=== PATIENT | female | born 2000 | race American Indian/Alaskan Native ===

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

== ENCOUNTER 2019-06-21 20:35 | Emergency (ER) | payer MEDICAID, OTHER ==
[2019-06-22 01:57] VITALS: BP 138/84
[2019-06-22] MEDS ORDERED: IBUPROFEN ORAL LIQD 100 MG/5 ML ORAL.LIQD PO ONE (03:06)
[2019-06-22] MEDS ORDERED: PENICILLIN G BENZATHINE 1.2 MILLION UNIT/2 ML INJ IM ONE (03:25)
[2019-06-22] MEDS ORDERED: LIDOCAINE VISCOUS 2% 15 ML ORAL LIQD PO ONE (03:25)
[2019-06-22] MEDS ORDERED: oxyCODONE /ACETAMINOPHEN 5-325MG TAB PO ONE (03:25)
[2019-06-22] MEDS ORDERED: dexAMETHasone 20 MG/5 ML VIAL IM ONE (03:25)
[2019-06-22] MEDS ORDERED: ONDANSETRON 4 MG ODT TAB PO ONE (03:26)
--- NOTE | 2019-06-22 04:57 | Emergency Department Report ---
ED General Adult HPI - General Chief complaint: Sore Throat Stated complaint: SORE THROAT Source: patient Mode of arrival: Ambulatory Limitations: No Limitations - History of Present Illness Initial comments: Patient is a 19-year-old -[place] female with no past medical history except recurrent streptococcal pharyngitis who presents to the ED with acute onset persistent severe sore throat with swollen tonsils with white thick exudates and dysphagia for the last 2 days. Patient denies fever, chills, nausea, vomiting, dizziness, headache, chest pain, shortness of breath, abdominal pain, palpitations, vision changes or syncope. Patient states that no one else at home has had similar symptoms. Patient states that her symptoms are similar to previous symptoms she had when she was diagnosed with streptococcal pharyngitis. MD Complaint: sore throat, dysphagia, nasal and sinus congestion -: Sudden, days(s) (2) Location: mouth Radiation: non-radiation Severity scale (0 -10): 5 Quality: aching, sharp Consistency: constant Improves with: none Worsens with: eating Associated Symptoms: denies other symptoms, cough, headaches, loss of appetite, nausea/vomiting. denies: confusion, chest pain, diaphoresis, fever/chills, malaise, rash, seizure, shortness of breath, syncope, weakness, other Treatments Prior to Arrival: NSAID - Related Data Previous Rx's Medication Instructions Recorded Last Taken Type Acetaminophen/Codeine [Tylenol 1 tab PO Q6H PRN #10 tab 06/22/19 Unknown Rx /Codeine # 3 tab] Azithromycin [Zithromax Z-MATTHEW] 250 mg PO DAILY #6 tablet 06/22/19 Unknown Rx Ibuprofen [Motrin] 800 mg PO Q8HR PRN #24 tablet 06/22/19 Unknown Rx Lidocaine Viscous 2% 10 ml PO Q6H PRN #120 ml 06/22/19 Unknown Rx Ondansetron [Zofran Odt] 4 mg PO Q6HR PRN #15 tab.rapdis 06/22/19 Unknown Rx Prednisone [predniSONE 10 mg 10 mg PO .TAPER #21 tab.ds.pk 06/22/19 Unknown Rx (6-Day Pack, 21 Tabs)] Allergies Allergy/AdvReac Type Severity Reaction Status Date / Time No Known Allergies Allergy Verified 06/21/19 20:49 ED Review of Systems ROS: Stated complaint: SORE THROAT Other details as noted in HPI Constitutional: denies: chills, fever Eyes: denies: eye pain, eye discharge, vision change ENT: throat pain, congestion. denies: ear pain Respiratory: cough. denies: shortness of breath, SOB with exertion, wheezing Cardiovascular: denies: chest pain, palpitations, syncope, paroxysmal nocturnal dyspnea Endocrine: no symptoms reported Gastrointestinal: denies: abdominal pain, nausea, diarrhea Genitourinary: denies: urgency, dysuria, discharge Musculoskeletal: denies: back pain, joint swelling, arthralgia Skin: denies: rash, lesions Neurological: denies: headache, weakness, paresthesias Psychiatric: denies: anxiety, depression Hematological/Lymphatic: denies: easy bleeding, easy bruising ED Past Medical Hx - Medications Home Medications: Home Medications Medication Instructions Recorded Confirmed Last Taken Type Acetaminophen/Codeine [Tylenol 1 tab PO Q6H PRN #10 tab 06/22/19 Unknown Rx /Codeine # 3 tab] Azithromycin [Zithromax Z-MATTHEW] 250 mg PO DAILY #6 tablet 06/22/19 Unknown Rx Ibuprofen [Motrin] 800 mg PO Q8HR PRN #24 tablet 06/22/19 Unknown Rx Lidocaine Viscous 2% 10 ml PO Q6H PRN #120 ml 06/22/19 Unknown Rx Ondansetron [Zofran Odt] 4 mg PO Q6HR PRN #15 tab.rapdis 06/22/19 Unknown Rx Prednisone [predniSONE 10 mg 10 mg PO .TAPER #21 tab.ds.pk 06/22/19 Unknown Rx (6-Day Pack, 21 Tabs)] ED Physical Exam - General Limitations: No Limitations General appearance: alert, in no apparent distress - Head Head exam: Present: atraumatic, normocephalic, normal inspection - Eye Eye exam: Present: normal appearance, PERRL, EOMI Pupils: Present: normal accommodation - ENT ENT exam: Present: mucous membranes moist, TM's normal bilaterally, normal external ear exam, other (Grossly congested nasal passages; swollen tonsils bilaterally with erythematous oropharynx and thick white exudates) - Neck Neck exam: Present: normal inspection, full ROM, lymphadenopathy (Palpable cervical anterior lymphadenopathy). Absent: tenderness - Respiratory Respiratory exam: Present: normal lung sounds bilaterally. Absent: respiratory distress, wheezes, rales, chest wall tenderness, accessory muscle use, decreased breath sounds - Cardiovascular Cardiovascular Exam: Present: normal rhythm, tachycardia, normal heart sounds. Absent: systolic murmur, diastolic murmur, rubs, gallop - GI/Abdominal GI/Abdominal exam: Present: soft, normal bowel sounds. Absent: tenderness, guarding, hyperactive bowel sounds, hypoactive bowel sounds, organomegaly - Extremities Exam Extremities exam: Present: normal inspection, full ROM, normal capillary refill - Back Exam Back exam: Present: normal inspection, full ROM. Absent: tenderness, CVA tenderness (R), CVA tenderness (L), muscle spasm, vertebral tenderness - Neurological Exam Neurological exam: Present: alert, oriented X3, CN II-XII intact, normal gait, reflexes normal - Psychiatric Psychiatric exam: Present: normal affect, normal mood - Skin Skin exam: Present: warm, dry, intact, normal color. Absent: rash ED Course Vital Signs 06/21/19 06/22/19 21:33 01:55 Temperature 99.6 F 98.6 F Pulse Rate 107 H 94 H Respiratory 18 18 Rate Blood Pressure 161/85 138/84 O2 Sat by Pulse 100 100 Oximetry ED Medical Decision Making - Medical Decision Making This is a 19-year-old female with recurrent streptococcal pharyngitis infections who presented to the ED with acute onset persistent severe sore throat with dysphagia and swollen tonsils with thick white exudates and drooling for 2 days. In the ED, patient is alert and oriented x3 and is not in any distress but appears to be in pain and is anxious and tachycardic but afebrile in triage. Patient was treated for pain in the ED and also given antiemetics. Rapid strep test was positive for group A strep. Patient was treated in the ED with Decadron as well as Bicillin LA 1,200,000 units intramuscular injection. On reevaluation, patient's pain is well controlled with medications. Patient was discharged home on medications and advised to follow-up with her primary care physician in 7 to 10 days for reevaluation or return to the ED immediately if symptoms get worse. - Differential Diagnosis Strep pharyngitis; Flu; URI; Bronchitis Critical care attestation.: If time is entered above; I have spent that time in minutes in the direct care of this critically ill patient, excluding procedure time. ED Disposition Clinical Impression: Acute streptococcal pharyngitis, Acute upper respiratory infection Disposition: DC-01 TO HOME OR SELFCARE Is pt being admited?: No Does the pt Need Aspirin: No Condition: Stable Instructions: Strep Throat (ED), Tonsillitis (ED), Upper Respiratory Infection (ED) Additional Instructions: Your test shows that you have streptococcal pharyngitis. Therefore take medications with food, drink plenty of fluids and follow-up with your primary care physician in 5 to 7 days for reevaluation. Return to the ED immediately if symptoms get worse. Prescriptions: Lidocaine Viscous 2% 10 ml PO Q6H PRN #120 ml PRN Reason: Pain , Severe (7-10) Ibuprofen [Motrin] 800 mg PO Q8HR PRN #24 tablet PRN Reason: Pain , Severe (7-10) Prednisone [predniSONE 10 mg (6-Day Pack, 21 Tabs)] 10 mg PO .TAPER #21 tab.ds.pk Acetaminophen/Codeine [Tylenol /Codeine # 3 tab] 1 tab PO Q6H PRN #10 tab PRN Reason: Pain , Severe (7-10) Azithromycin [Zithromax Z-MATTHEW] 250 mg PO DAILY #6 tablet Ondansetron [Zofran Odt] 4 mg PO Q6HR PRN #15 tab.rapdis PRN Reason: Nausea Referrals: RICHARDSON NGUYEN MD [Staff Physician] - 7-10 days Forms: Work/School Release Form(ED) Time of Disposition: 04:58 Print Language: NEPALI
== END 2019-06-22 05:19 | disposition home or self-care (01) ==
LOC: ED 20:35
DX: J02.0 Streptococcal pharyngitis (principal); Z79.1 Long term (current) use of non-steroidal anti-inflammatories (NSAID); Z79.899 Other long term (current) drug therapy
CPT/HCPCS: 87430; 96372; 99283; J0561; J1100; Q0162

== ENCOUNTER 2020-03-25 15:19 | Inpatient (IN) | payer MEDICAID ==
[2020-03-25] MEDS ORDERED: KETOROLAC 30 MG/1 ML INJ IM ONE (16:02)
[2020-03-25] MEDS ORDERED: dexAMETHasone 20 MG/5 ML VIAL IM ONE (16:02)
--- NOTE | 2020-03-25 16:05 | Event Note ---
ED Screening Note Date of service: 03/25/20 Time: 16:04 ED Screening Note: 20-year-old -[place] female presents to the emergency room for sore throat neck pain fever and difficulty to swallow. Patient has a muscle voice, hypertrophic bilateral tonsils with exudate, bilateral lymph adenopathy tonsillar with tenderness This initial assessment/diagnostic orders/clinical plan/treatment(s) is/are subject to change based on patients health status, clinical progression and re-assessment by fellow clinical providers in the ED. Further treatment and workup at subsequent clinical providers discretion. Patient/guardian urged not to elope from the ED as their condition may be serious if not clinically assessed and managed. Initial orders include:
[2020-03-25] MEDS ORDERED: dexAMETHasone 20 MG/5 ML VIAL IV ONE (16:07)
[2020-03-25] MEDS ORDERED: KETOROLAC 30 MG/1 ML INJ IV ONE (16:07)
[2020-03-25] MEDS ORDERED: SODIUM CHLORIDE 0.9% 1000 ML 1,000 ML IV ONE (16:07)
[2020-03-25] MEDS ORDERED: dexAMETHasone 20 MG in SODIUM CHLORIDE 0.9% 50 ML IV ONE (16:14)
[2020-03-25] MEDS ORDERED: PIPERACIL/TAZOBACTA 4.5/NS 100 4.5 GM/100 ML VIAL IV ONE ×2 (16:15→22:54)
--- NOTE | 2020-03-25 16:27 | Emergency Department Report ---
ED ENT HPI - General Chief complaint: Sore Throat Stated complaint: STREP THROAT Time Seen by Provider: 03/25/20 16:06 Source: patient Mode of arrival: Ambulatory Limitations: No Limitations - History of Present Illness Initial comments: 20-year-old female with a past medical history of morbid obesity and sleep apnea (not currently on CPAP) presents to the hospital complaining of sore throat, pain, difficulty swallowing, and speaking for the last 2 days. She denies fever. She denies dental pain or trauma. Patient is currently spitting into a bag because she states she cannot swallow and complains of some shortness of breath. - Related Data Previous Rx's Medication Instructions Recorded Last Taken Type Acetaminophen/Codeine [Tylenol 1 tab PO Q6H PRN #10 tab 06/22/19 Unknown Rx /Codeine # 3 tab] Azithromycin [Zithromax Z-MATTHEW] 250 mg PO DAILY #6 tablet 06/22/19 Unknown Rx Ibuprofen [Motrin] 800 mg PO Q8HR PRN #24 tablet 06/22/19 Unknown Rx Lidocaine Viscous 2% 10 ml PO Q6H PRN #120 ml 06/22/19 Unknown Rx Ondansetron [Zofran Odt] 4 mg PO Q6HR PRN #15 tab.rapdis 06/22/19 Unknown Rx Prednisone [predniSONE 10 mg 10 mg PO .TAPER #21 tab.ds.pk 06/22/19 Unknown Rx (6-Day Pack, 21 Tabs)] Allergies Allergy/AdvReac Type Severity Reaction Status Date / Time No Known Allergies Allergy Verified 03/25/20 15:52 ED Dental HPI - General Chief complaint: Sore Throat Stated complaint: STREP THROAT Time Seen by Provider: 03/25/20 16:06 Source: patient Mode of arrival: Ambulatory Limitations: No Limitations - Related Data Previous Rx's Medication Instructions Recorded Last Taken Type Acetaminophen/Codeine [Tylenol 1 tab PO Q6H PRN #10 tab 06/22/19 Unknown Rx /Codeine # 3 tab] Azithromycin [Zithromax Z-MATTHEW] 250 mg PO DAILY #6 tablet 06/22/19 Unknown Rx Ibuprofen [Motrin] 800 mg PO Q8HR PRN #24 tablet 06/22/19 Unknown Rx Lidocaine Viscous 2% 10 ml PO Q6H PRN #120 ml 06/22/19 Unknown Rx Ondansetron [Zofran Odt] 4 mg PO Q6HR PRN #15 tab.rapdis 06/22/19 Unknown Rx Prednisone [predniSONE 10 mg 10 mg PO .TAPER #21 tab.ds.pk 06/22/19 Unknown Rx (6-Day Pack, 21 Tabs)] Allergies Allergy/AdvReac Type Severity Reaction Status Date / Time No Known Allergies Allergy Verified 03/25/20 15:52 ED Review of Systems ROS: Stated complaint: STREP THROAT Other details as noted in HPI Comment: All other systems reviewed and negative ED Past Medical Hx - Past Medical History Additional medical history: ENDOMETROSIS - Surgical History Past Surgical History?: No - Social History Smoking Status: Never Smoker Substance Use Type: None - Medications Home Medications: Home Medications Medication Instructions Recorded Confirmed Last Taken Type Acetaminophen/Codeine [Tylenol 1 tab PO Q6H PRN #10 tab 06/22/19 Unknown Rx /Codeine # 3 tab] Azithromycin [Zithromax Z-MATTHEW] 250 mg PO DAILY #6 tablet 06/22/19 Unknown Rx Ibuprofen [Motrin] 800 mg PO Q8HR PRN #24 tablet 06/22/19 Unknown Rx Lidocaine Viscous 2% 10 ml PO Q6H PRN #120 ml 06/22/19 Unknown Rx Ondansetron [Zofran Odt] 4 mg PO Q6HR PRN #15 tab.rapdis 06/22/19 Unknown Rx Prednisone [predniSONE 10 mg 10 mg PO .TAPER #21 tab.ds.pk 06/22/19 Unknown Rx (6-Day Pack, 21 Tabs)] ED Physical Exam - General Limitations: No Limitations - Other Other exam information: General: No acute distress Head: Atraumatic Eyes: normal appearance ENT: Moist mucous membranes, bilateral tonsillar exudates with tonsillar edema (kissing tonsils) with uvula midline, bilateral tender cervical adenopathy with fullness under submental area Neck: Possible swelling to submental area with tender cervical adenopathy. Patient is not in sniffing position. Hypophonia with speaking, no stridor Chest: Clear to auscultation bilaterally CV: Regular rate and rhythm Abdomen: Soft, normal bowel sounds, nontender, nondistended, no rebound or guarding Back: Normal inspection Extremity: Normal inspection, full range of motion Neuro: Alert O x 3, no facial asymmetry, speech clear, no gross motor sensory deficit Psych: Appropriate behavior Skin: No rash ED Course Vital Signs 03/25/20 03/25/20 03/25/20 15:55 16:40 16:43 Temperature 97.7 F Pulse Rate 99 H 97 H Respiratory 22 14 18 Rate Blood Pressure 155/81 Blood Pressure [Right] O2 Sat by Pulse 98 100 100 Oximetry 03/25/20 03/25/20 03/25/20 16:45 16:57 17:00 Temperature 99.1 F Pulse Rate 101 H 103 H Respiratory 26 H 22 18 Rate Blood Pressure 115/74 Blood Pressure 115/74 [Right] O2 Sat by Pulse 99 100 Oximetry 03/25/20 03/25/20 03/25/20 17:01 17:31 17:45 Temperature Pulse Rate 102 H 85 93 H Respiratory 16 15 7 L Rate Blood Pressure 136/62 136/62 136/62 Blood Pressure [Right] O2 Sat by Pulse 100 100 100 Oximetry 03/25/20 03/25/20 03/25/20 18:01 18:15 18:31 Temperature Pulse Rate 85 98 H 96 H Respiratory 10 L 10 L 17 Rate Blood Pressure 132/71 132/71 132/71 Blood Pressure [Right] O2 Sat by Pulse 100 99 Oximetry 03/25/20 18:45 Temperature Pulse Rate 86 Respiratory 25 H Rate Blood Pressure 132/71 Blood Pressure [Right] O2 Sat by Pulse 100 Oximetry - Consultations Consultation #1: 03/25/20 18:16 [facility] transfer line contacted. Awaiting ENT call back. 03/25/20 18:[address] Kunz ENT at [facility] with request to transfer patient due to lack of ENT and in-house anesthesia/surgery availability for difficult airway management. She declined except patient stating that patient just needs IV antibiotics and Decadron 10 mg every 8 hours. She states that significant tonsillitis rarely decompensates to require emergent airway intervention and typically improves in 24 hours with steroids and antibiotics. ED Medical Decision Making - Lab Data Result diagrams: 03/25/20 16:15 03/25/20 16:15 Lab Results 03/25/20 03/25/20 03/25/20 Range/Units 16:15 16:15 16:19 WBC 12.1 H (4.5-11.0) K/mm3 RBC 4.50 (3.65-5.03) M/mm3 Hgb 10.9 (10.1-14.3) gm/dl Hct 35.2 (30.3-42.9) % MCV 78 L (79-97) fl MCH 24 L (28-32) pg MCHC 31 (30-34) % RDW 16.6 H (13.2-15.2) % Plt Count 249 (140-440) K/mm3 Lymph % (Auto) 17.9 (13.4-35.0) % [place] % (Auto) 8.5 H (0.0-7.3) % Eos % (Auto) 0.8 (0.0-4.3) % Baso % (Auto) 0.2 (0.0-1.8) % Lymph # (Auto) 2.2 (1.2-5.4) K/mm3 [place] # (Auto) 1.0 H (0.0-0.8) K/mm3 Eos # (Auto) 0.1 (0.0-0.4) K/mm3 Baso # (Auto) 0.0 (0.0-0.1) K/mm3 Seg Neutrophils % 72.6 H (40.0-70.0) % Seg Neutrophils # 8.8 H (1.8-7.7) K/mm3 Sodium 137 (137-145) mmol/L Potassium 3.6 (3.6-5.0) mmol/L Chloride 103.4 (98-107) mmol/L Carbon Dioxide 26 (22-30) mmol/L Anion Gap 11 mmol/L BUN 7 (7-17) mg/dL Creatinine 0.7 (0.6-1.2) mg/dL Estimated GFR > 60 ml/min BUN/Creatinine Ratio 10 % Glucose 108 H (65-100) mg/dL Calcium 9.1 (8.4-10.2) mg/dL HCG, Qual Negative (Negative) Group A Strep Rapid (Negative) 03/25/20 Range/Units Unknown WBC (4.5-11.0) K/mm3 RBC (3.65-5.03) M/mm3 Hgb (10.1-14.3) gm/dl Hct (30.3-42.9) % MCV (79-97) fl MCH (28-32) pg MCHC (30-34) % RDW (13.2-15.2) % Plt Count (140-440) K/mm3 Lymph % (Auto) (13.4-35.0) % [place] % (Auto) (0.0-7.3) % Eos % (Auto) (0.0-4.3) % Baso % (Auto) (0.0-1.8) % Lymph # (Auto) (1.2-5.4) K/mm3 [place] # (Auto) (0.0-0.8) K/mm3 Eos # (Auto) (0.0-0.4) K/mm3 Baso # (Auto) (0.0-0.1) K/mm3 Seg Neutrophils % (40.0-70.0) % Seg Neutrophils # (1.8-7.7) K/mm3 Sodium (137-145) mmol/L Potassium (3.6-5.0) mmol/L Chloride (98-107) mmol/L Carbon Dioxide (22-30) mmol/L Anion Gap mmol/L BUN (7-17) mg/dL Creatinine (0.6-1.2) mg/dL Estimated GFR ml/min BUN/Creatinine Ratio % Glucose (65-100) mg/dL Calcium (8.4-10.2) mg/dL HCG, Qual (Negative) Group A Strep Rapid Negative (Negative) - Radiology Data Radiology results: report reviewed - Medical Decision Making 20-year-old female with significant tonsillar edema secondary to tonsillitis without abscess with airway narrowing on CT will be admitted to the hospital for IV antibiotics, IV steroids, and CPAP/BiPAP airway support due to underlying history of sleep apnea. I attempted to transfer patient to [facility] due to lack of in-house anesthesia coverage, ENT, and in-house surgery to manage potential difficult airway if patient decompensates. Dr. Kunz from [facility] declined to accept patient stating that patient just needs IV antibiotics and steroids and these patients typically improve within 24 hours. Patient did receive Decadron 20 mg, IV Toradol, normal saline, and IV Zosyn in the ED. She reports some im provement in symptoms after treatment. She will be admitted to the hospital service for further support and treatment. Strep test is negative. Critical Care Time: No Critical care attestation.: If time is entered above; I have spent that time in minutes in the direct care of this critically ill patient, excluding procedure time. ED Disposition Clinical Impression: Acute tonsillitis, Sleep apnea, Narrow pharyngeal airway, Morbid obesity Disposition: OP ADMIT IP TO THIS HOSP Is pt being admited?: Yes Condition: Stable Time of Disposition: 18:29 (Dr Aldana/hosp)
[2020-03-25] MEDS ORDERED: dexAMETHasone 20 MG/5 ML VIAL ONE ×2 (16:45→22:54)
[2020-03-25 16:48] LABS: Blood Urea Nitrogen 7 mg/dL (7-17); Calcium 9.1 mg/dL (8.4-10.2); Hemolysis Index 2
[2020-03-25 16:49] LABS: BUN/Creatinine Ratio 10; Basophils % (Auto) 0.2 % (0.0-1.8); Eosinophils # (Auto) 0.1 K/mm3 (0.0-0.4); Eosinophils % (Auto) 0.8 % (0.0-4.3); Hematocrit 35.2 % (30.3-42.9); Hemoglobin 10.9 gm/dl (10.1-14.3); Lymphocytes # (Auto) 2.2 K/mm3 (1.2-5.4); Lymphocytes % (Auto) 17.9 % (13.4-35.0); Mean Corpuscular HGB Conc 31 % (30-34); Mean Corpuscular Volume 78 fl (79-97); Monocytes % (Auto) 8.5 % (0.0-7.3); Platelet Count 249 K/mm3 (140-440); Red Cell Distribution Width 16.6 % (13.2-15.2)
--- NOTE | 2020-03-25 18:05 | Cat Scan Report ---
CT NECK WITH INTRAVENOUS CONTRAST AND MULTIPLANAR RECONSTRUCTION CLINICAL HISTORY: Patient reports throat swelling and pain. Difficulty speaking and breathing. TECHNIQUE: 2.5 mm thick contiguous axial scans were obtained from the skull base down to the aortic arch during intravenous contrast administration. In addition to evaluation of axial source images sagittal and co elizabeth multiplanar reconstructions were produced and reviewed for this report. All CT imaging studies performed at this facility utilize dose modulation, iterative reconstruction o r weight based dosing, if appropriate, to obtain the lowest achievable radiation dose. FINDINGS: Marked enlargement of the palatine tonsils and adenoids is observed. The palatine tonsils are in cont act in the midline blocking the air passageways between the oral cavity to the oropharynx. There is n arrowing of the airway in the region of the nasopharynx. Careful clinical assessment of the functiona l adequacy of the patient's airway is advised. There is no indication of tonsillar or peritonsillar a bscess at this time. No indication of parapharyngeal abscess is observed. The larynx and visualized p ortions of the subglottic airway have an unremarkable appearance. Enlarged cervical lymph nodes are demonstrated. Level 1B lymph nodes are observed bilaterally. The la rgest of these is located on the right where a 21 x 11 x 8 mm lymph node is identified. This maintain s a normal oval shape and contains a normal fatty hilus. A large left-sided level 2 lymph node is dem onstrated measuring about 21 x 14 mm in transverse dimension by 34 mm in superior-inferior dimension. Smaller nodes are present in level 2 and level 3 bilaterally. These are likely reactive lymph nodes. Occasionally, lymphoid malignancy can present with enlargement of the adenoids tonsils and lymphaden opathy. Follow-up to clinical resolution is recommended.. No abnormalities are seen in evaluation of the oral cavity and tongue. The floor the mouth has a norm al appearance. Evaluation of the teeth is remarkable for a small dental carry at the crown of tooth n umber #30 where. 3 apical lucency is seen at the roots. Note is made of an impacted left third molar along the inferior alveolar ridge. The parotid and submandibular salivary glands have a normal appearance. Evaluation of the nasal cavity reveals no abnormality. The paranasal sinuses are free from inflammato ry mucosal disease. Evaluation of the orbits reveals no abnormality. The thyroid gland is normal in size and homogeneous in attenuation. No focal thyroid lesions are iden tified. Evaluation of the cervical spine reveals no significant abnormality. Normal alignment is maintained. No significant degenerative changes are identified. Evaluation of the lung apices reveals no abnormality. There is no indication of lung nodule or infilt rate. The visualized portions of the superior mediastinum have an unremarkable appearance. Enhancement of normal vascular structures is demonstrated. No areas of abnormal contrast enhancement are identified. IMPRESSION: 1. Marked enlargement of the adenoids and palatine tonsils produces marked narrowing of the airway as described in detail above. Careful clinical correlation to assess the functional adequacy of the pat ient's airway is advised. 2. No indication of tonsillar, peritonsillar or parapharyngeal abscess. 3. Enlarged level 1B and level 2 and level 3 lymph nodes which are likely reactive. Follow-up until c linical resolution is advised. Signer Name: Rk Avila MD Signed: 03/25/2020 6:01 PM Workstation Name: [id number]
--- NOTE | 2020-03-25 18:39 | History and Physical Report ---
History of Present Illness Chief complaint: I have a sore throat History of present illness: 20 YO Female with Obesity Hypoventilation Syndrome, Endometriosis presents to ED for evaluation. Patient states that she has experienced sore throat over the past 2 days with persistent symptoms over the same timeframe. Patient states that she has experienced difficulty swallowing, pain with swallowing as well as throat pain with speaking. Patient also reports difficulty swallowing. Patient transported to [facility] via private vehicle for further care and evaluation of the aforementioned symptoms. Patient seen and evaluated in the emergency department. All lab and imaging studies reviewed. Patient found to have pulse tonsillitis without evidence of abscess, systemic monitor response syndrome, as well as concomitant obesity hypoventilation syndrome. Patient initiated on IV antibiotic therapy in the emergency department. A consult was placed to Dr. Kunz ENT at [facility] with request to transfer patient for further care and stabilization. Due to lack of ENT and in-house anesthesia/surgery availability for difficult airway management. Dr. Kunz reports that patient did not meet criteria for either transfer or surgical intervention. Recommend IV antibiotic therapy, Decadron 10 mg every 8 hours. She states that significant tonsillitis rarely decompensates to require emergent airway intervention and typically improves to 24 hours with steroids and antibiotics. Patient resting comfortably. Patient denies fever, chills, chest pain, palpitation, productive cough, skin rash, recent ill contacts, or known exposure to COVID-19. No prior admission for review. All medication listed at time of admission has been reconciled. Patient admitted to [facility] and initiated on IV antibiotic therapy as well as IV steroid therapy as per ENT surgery recommendation. Past History Past Medical History: other (See HPI) Past Surgical History: No surgical history, Other (Reviewed) Social history: single. denies: smoking, alcohol abuse Family history: hypertension Medications and Allergies Allergies Allergy/AdvReac Type Severity Reaction Status Date / Time No Known Allergies Allergy Verified 03/25/20 15:52 Home Medications Medication Instructions Recorded Confirmed Last Taken Type Acetaminophen/Codeine [Tylenol 1 tab PO Q6H PRN #10 tab 06/22/19 Unknown Rx /Codeine # 3 tab] Azithromycin [Zithromax Z-MATTHEW] 250 mg PO DAILY #6 tablet 06/22/19 Unknown Rx Ibuprofen [Motrin] 800 mg PO Q8HR PRN #24 tablet 06/22/19 Unknown Rx Lidocaine Viscous 2% 10 ml PO Q6H PRN #120 ml 06/22/19 Unknown Rx Ondansetron [Zofran Odt] 4 mg PO Q6HR PRN #15 tab.rapdis 06/22/19 Unknown Rx Prednisone [predniSONE 10 mg 10 mg PO .TAPER #21 tab.ds.pk 06/22/19 Unknown Rx (6-Day Pack, 21 Tabs)] Active Meds: Active Medications Sodium Chloride (Sodium Chloride Flush Syringe 10 Ml) 10 ml IV BID ELIGIO Sodium Chloride (Sodium Chloride Flush Syringe 10 Ml) 10 ml IV PRN PRN PRN Reason: LINE FLUSH Review of Systems Constitutional: no weight loss, no weight gain, no fever, no chills Ears, nose, mouth and throat: sore throat, odynophagia, no ear pain, no ear discharge, no tinnitis, no decreased hearing, no nose pain Breasts: no change in shape, no swelling, no mass Cardiovascular: no chest pain, no orthopnea, no palpitations, no rapid/irregular heart beat, no edema Respiratory: no cough, no cough with sputum, no hemoptysis, no shortness of breath Gastrointestinal: no abdominal pain, no nausea, no diarrhea, no constipation, no change in bowel habits, no hematemesis Genitourinary Female: no pelvic pain, no flank pain, no dysuria, no urinary frequency, no urgency Rectal: no pain, no incontinence, no bleeding Musculoskeletal: no neck stiffness, no neck pain, no shooting arm pain Integumentary: no rash, no sores, no wounds, no boils Neurological: no head injury, no weakness, no parathesias Psychiatric: no anxiety, no change in sleep habits, no sleep disturbances, no hypersomnia, no change in appetite, no change in libido Endocrine: no heat intolerance, no polyphagia Hematologic/Lymphatic: no easy bruising, no lymphadenopathy Allergic/Immunologic: no allergic rhinitis, no wheezing, no persistent infections Exam - Constitutional Vitals: Temp Pulse Resp BP Pulse Ox 99.1 F 102 H 16 136/62 100 03/25/20 16:57 03/25/20 17:01 03/25/20 17:01 03/25/20 17:01 03/25/20 17:01 General appearance: Present: mild distress - EENT Eyes: Present: PERRL ENT: hearing intact, other ( bilateral tonsillar exudates with tonsillar edema, uvula midline, bilateral tender cervical adenopathy,) - Neck Neck: Present: supple, normal ROM - Respiratory Respiratory effort: normal Respiratory: bilateral: CTA - Cardiovascular Heart Sounds: Present: S1 & S2. Absent: rub, click - Extremities Extremities: pulses symmetrical, No edema Peripheral Pulses: within normal limits - Abdominal General gastrointestinal: Present: soft, non-tender, non-distended, normal bowel sounds Female genitourinary: Present: normal - Integumentary Integumentary: Present: clear, warm, dry - Musculoskeletal Musculoskeletal: gait normal, strength equal bilaterally - Psychiatric Psychiatric: appropriate mood/affect, intact judgment & insight - Neurologic Neurologic: CNII-XII intact, moves all extremities Results - Labs CBC & Chem 7: 03/25/20 16:15 03/25/20 16:15 Labs: Abnormal lab results 03/25/20 03/25/20 Range/Units 16:15 16:15 WBC 12.1 H (4.5-11.0) K/mm3 MCV 78 L (79-97) fl MCH 24 L (28-32) pg RDW 16.6 H (13.2-15.2) % [place] % (Auto) 8.5 H (0.0-7.3) % [place] # (Auto) 1.0 H (0.0-0.8) K/mm3 Seg Neutrophils % 72.6 H (40.0-70.0) % Seg Neutrophils # 8.8 H (1.8-7.7) K/mm3 Glucose 108 H (65-100) mg/dL Assessment and Plan - Patient Problems (1) Acute tonsillitis Current Visit: Yes Status: Acute Plan to address problem: CBC, CMP, CT scan of the neck, IV antibiotic therapy, IV steroid therapy, Mo nospot test, supportive care. ENT consulted and recommend IV steroid therapy as well as IV antibiotic therapy. Supportive care. (2) Systemic inflammatory response syndrome Current Visit: Yes Status: Acute Plan to address problem: CBC, CMP, chest x-ray, urinalysis, IV antibiotic therapy. (3) Obesity hypoventilation syndrome Current Visit: Yes Status: Acute Plan to address problem: Supplemental oxygen, nebulizer therapy, noninvasive positive pressure ventilation nightly. Outpatient pulmonary follow-up for sleep study. (4) DVT prophylaxis Current Visit: Yes Status: Acute Plan to address problem: SCD to bilateral lower extremities while in bed, patient is ambulatory.
[2020-03-25] MEDS ORDERED: ACETAMINOPHEN 325 MG/10.15 ML ORAL LIQD UNIT DOSE PO PRN (19:21)
[2020-03-25] MEDS: dexAMETHasone 20 MG/5 ML VIAL IV SCH (23:01)
[2020-03-25] MEDS: PIPERACIL/TAZOBACTA 4.5/NS 100 4.5 GM/100 ML VIAL IV SCH (23:02)
[2020-03-26] MEDS ORDERED: dexAMETHasone 20 MG/5 ML VIAL ONE (12:54)
[2020-03-26] MEDS ORDERED: PIPERACIL/TAZOBACTA 4.5/NS 100 4.5 GM/100 ML VIAL IV ONE (12:55)
[2020-03-26] MEDS: dexAMETHasone 20 MG/5 ML VIAL IV SCH ×2 (13:00→13:44)
[2020-03-26] MEDS: PIPERACIL/TAZOBACTA 4.5/NS 100 4.5 GM/100 ML VIAL IV SCH ×2 (13:00→13:44)
--- NOTE | 2020-03-26 13:08 | Discharge Summary ---
Providers - Providers Date of Admission: 03/25/20 18:33 Date of discharge: 03/26/20 Attending physician: SAUL CLARKE Primary care physician: MICHAEL DE LEON MD Hospitalization Condition: Stable Hospital course: Admitted for acute tonsillitis and upper airway obstruction--now resolved (1) Acute tonsillitis Current Visit: Yes Status: Acute Plan to address problem: Discharge on oral Augmentin 875 mg po bid (2) Systemic inflammatory response syndrome Current Visit: Yes Status: Acute Plan to address problem: Improved (3) Obesity hypoventilation syndrome Current Visit: Yes Status: Acute Plan to address problem: Needs to loose weight F/u with Bariatric surgery Disposition: DC- TO HOME OR SELFCARE - Discharge Diagnoses (1) Acute tonsillitis Status: Acute (2) Obesity hypoventilation syndrome Status: Acute (3) Systemic inflammatory response syndrome Status: Acute (4) Morbid obesity Status: Acute Core Measure Documentation - Palliative Care Palliative Care/ Comfort Measures: Not Applicable - Core Measures Any of the following diagnoses?: none Exam - Constitutional Vitals: Temp Pulse Resp BP Pulse Ox 98.1 F 88 16 154/83 99 03/26/20 08:00 03/26/20 08:00 03/26/20 09:30 03/26/20 08:00 03/26/20 09:30 General appearance: Present: no acute distress, well-nourished - EENT Eyes: Present: PERRL ENT: hearing intact, clear oral mucosa - Neck Neck: Present: supple, normal ROM - Respiratory Respiratory effort: normal Respiratory: bilateral: CTA - Cardiovascular Heart rate: 78 Rhythm: regular Heart Sounds: Present: S1 & S2. Absent: rub, click - Extremities Extremities: no ischemia, pulses symmetrical, No edema Peripheral Pulses: within normal limits - Abdominal General gastrointestinal: Present: soft, non-tender, non-distended, normal bowel sounds Female genitourinary: Present: normal - Rectal Rectal Exam: deferred - Integumentary Integumentary: Present: clear, warm, dry - Musculoskeletal Musculoskeletal: gait normal, strength equal bilaterally - Psychiatric Psychiatric: appropriate mood/affect, intact judgment & insight - Neurologic Neurologic: CNII-XII intact, moves all extremities - Allied Health Allied health notes reviewed: nursing, case management Plan Activity: no restrictions Diet: regular Follow up with: PRIMARY CARE, [Primary Care Provider] - 7 Days
[2020-03-26] MEDS ORDERED: cefTRIAXone/NS 2 GM/100 ML 2 GM/100 ML BAG IV ONE (13:27)
[2020-03-26] MEDS ORDERED: cefTRIAXone/NS 2 GM/100 ML 2 GM/100 ML BAG IV SCH (13:30)
[2020-03-26] MEDS ORDERED: AMOXICILLIN/K CLAV 875/125MG TAB PO SCH (14:00)
[2020-03-26 14:38] VITALS: BP 135/72
== END 2020-03-26 14:22 | disposition home or self-care (01) | DRG 153 ==
LOC: ED 15:19 → IMCU 18:33
PROVIDERS: ADMIT Internal Medicine; ATTEND Internal Medicine
DX: J03.90 Acute tonsillitis, unspecified (principal); R65.10 Systemic inflammatory response syndrome (SIRS) of non-infectious origin without acute organ dysfunction; E66.2 Morbid (severe) obesity with alveolar hypoventilation; Z68.43 Body mass index [BMI] 50.0-59.9, adult; Z82.49 Family history of ischemic heart disease and other diseases of the circulatory system; J98.8 Other specified respiratory disorders
CPT/HCPCS: 36415; 70491; 80048; 84703; 85025; 86308; 87116; 87430; 90471; 96374; 96375; G0378; J0696; J1100; J1885; J2543; J7030; Q9967